=== PATIENT | female | born 1990 | race Caucasian/White ===

== ENCOUNTER 2016-06-07 23:16 | Emergency (ER) | payer OTHER, SELFPAY ==
[2016-06-07] MEDS ORDERED: NORCO 5/325 MG PO ONE (23:36)
[2016-06-07] MEDS ORDERED: NORCO 5/325 MG ONE (23:38)
--- NOTE | 2016-06-07 23:41 | ERPHSYRPT ---
- History of Present Illness Time Seen by Provider: 06/07/16 23:33 Source: patient Exam Limitations: no limitations Patient Subjective Stated Complaint: PT STS LT FINGER PAIN FOR A FEW DAYS INCREASING IN NATURE LT RING FINGER. DENIES SPECIFIC INJURY. PT RATES PAIN 10/ 10. PT STS TOOK IBUPROFEN BUT IT DID NOT REALLY HELP. Triage Nursing Assessment: PT ALERT, ORIENTED, ANSWERS ALL QUESTIONS APPROPRIATELY. SKIN P/W/D, RESPS NON-LABORED. PT AMBULATORY TO TX ROOM, STEADY GAIT NOTED. MILD SWELLING TO LT RING FINGER. NO REDNESS NOTED. LIMITED ROM NOTED. CAP REFILL LESS THAN 3 SECONDS. PT LAUGHING, SMILING, JOKING IN ROOM WITH SIGNIFICANT OTHER. Physician History: FOR THE PAST 3 DAYS PT HAS HAD LEFT RING FINGER PAIN WITHOUT ANY KNOWN INJURY. PT DENIES ANY PRIOR FRACTURES; DENIES NUMBNESS OF THE DIGITS OF THE LEFT HAND. Allergies/Adverse Reactions: No Known Drug Allergies Allergy (Verified 06/07/16 23:19) Home Medications: Ibuprofen 3 tab PO Q6-8HPRN PRN 06/07/16 [History] Hx Tetanus, Diphtheria Vaccination/Date Given: Yes Hx Influenza Vaccination/Date Given: No Hx Pneumococcal Vaccination/Date Given: No Immunizations Up to Date: Yes - Review of Systems Musculoskeletal: Other (LEFT RING FINGER PAIN) - Past Medical History Pertinent Past Medical History: No Neurological History: No Pertinent History ENT History: No Pertinent History Cardiac History: No Pertinent History Respiratory History: No Pertinent History Endocrine Medical History: No Pertinent History Musculoskeletal History: No Pertinent History GI Medical History: No Pertinent History History: No Pertinent History Psycho-Social History: Depression Female Reproductive Disorders: No Pertinent History - Past Surgical History Past Surgical History: Yes Neuro Surgical History: No Pertinent History Cardiac: No Pertinent History Respiratory: No Pertinent History Gastrointestinal: Appendectomy Genitourinary: No Pertinent History Musculoskeletal: No Pertinent History Female Surgical History: No Pertinent History Other Surgical History: "DIGESTIVE TRACT RE-ROUTED" - Social History Smoking Status: Current every day smoker How long have you smoked: 8 YEARS Exposure to second hand smoke: No Drug Use: none Patient Lives Alone: No - Female History Hx Last Menstrual Period: LAST WEEK Hx Now: No - Nursing Vital Signs Nursing Vital Signs: Initial Vital Signs Temperature 98.0 F Temperature Source Oral Pulse Rate 76 Respiratory Rate 16 Blood Pressure 106/64 Pain Intensity 10 - Physical Exam General Appearance: alert Shoulder Exam: normal ROM Elbow/Forearm Exam: normal ROM Wrist Exam: normal ROM Hand Exam: normal ROM, swelling (MILD TENDERNESS AND EDEMA OF THE LEFT RING FINGER; ALL LEFT HAND DIGITS HAVE FULL ROM, CAPILLARY REFILL AND SENSATION.) SpO2: 98 Oxygen Delivery: Room Air - Course Nursing assessment & vital signs reviewed: Yes - Radiology Exams Left Hand X-ray Interpretation: Interpreted by me, No Fracture Ordered Tests: Active Orders 24 hr Category Date Time Status HAND (MINIMUM 3 VIEWS) Stat Exams 06/07/16 23:36 Ordered Medication Summary Discontinued Medications Generic Name Dose Route Start Last Admin Trade Name Freq PRN Reason Stop Dose Admin Acetaminophen/Hydrocodone Bitart 2 tab 06/07/16 23:36 06/07/16 23:39 [place] 5/325 Mg PO 06/07/16 23:37 2 tab STAT ONE Administration Acetaminophen/Hydrocodone Bitart Confirm 06/07/16 23:38 [place] 5/325 Mg Administered 06/07/16 23:39 Dose 2 tab .ROUTE .STK-MED ONE - Departure Time of Disposition: 00:07 Departure Disposition: Home Clinical Impression: LEFT RING FINGER PAIN Condition: Fair Critical Care Time: No Referrals: ALF FLORES MD [ACTIVE STAFF] - Instructions: Finger Sprain Additional Instructions: FOLLOW UP WITH PRIVATE DOCTOR TOMORROW. ELEVATE LEFT HAND ABOVE HEART LEVEL FOR 24 HOURS. Prescriptions: Naproxen [Naprosyn] 500 mg PO [id number] PRN #20 tablet PRN Reason: Pain
[2016-06-08 00:16] VITALS: BP 108/66; PULSE 60; O2SAT 99
--- NOTE | 2016-06-08 08:52 | XRAY ---
Indication: Fourth finger PIP pain/swelling. No known injury. Comparison: None 3 views of the left hand demonstrates tiny nondisplaced avulsion like fracture involving the base of the fourth middle phalanx anteriorly with mild soft tissue swelling. No other bony, articular, or soft tissue abnormalities. Comment: Above fracture not reported. I gave telephone report to Dr. Chun in the ER at 0848 hours on June 08, 2016.
== END 2016-06-08 00:17 | disposition home or self-care (01) ==
LOC: ED 23:16
DX: S62.655A Nondisplaced fracture of middle phalanx of left ring finger, initial encounter for closed fracture (principal)
CPT/HCPCS: 73130; 99282

== ENCOUNTER 2016-09-01 22:52 | Emergency (ER) | payer OTHER, SELFPAY ==
[2016-09-01 23:06] VITALS: BP 122/76; PULSE 95; O2SAT 98
[2016-09-01] MEDS ORDERED: Sodium Chloride 0.9% 1000 ML 1,000 ML IV STA (23:29)
--- NOTE | 2016-09-01 23:36 | ERPHSYRPT ---
- History of Present Illness Time Seen by Provider: 09/01/16 23:00 Historian: patient Exam Limitations: clinical condition Patient Subjective Stated Complaint: chest pain since 4:30 Triage Nursing Assessment: pt alert and orietnedx3, pulses equal bilat radius, lung sounds clear, bowel sounds x4, patient has hx of anxiety is on medication currently for it Physician History: PATIENT WITH A HISTORY OF DEPRESSION COMPLAINS OF ACUTE ONSET OF RIGHT SIDED SHARP CHEST PAIN OVER THE PAST 4 HOURS EXACERBATED UPON INSPIRATION AND MOTION OF CHEST. DENIES COUGH, DYSPNEA, DIAPHORESIS OR PALPITATIONS. Activities at Onset: none Quality: sharpness, stabbing Location: other (RIGHT SIDED CHEST PAIN) Severity of Pain-Max: moderate Severity of Pain-Current: none Modifying Factors: Improves With: breathing, change in position Associated Symptoms: hurts to breathe Prior Chest Pain/Cardiac Workup: no prior chest pain Nitro Today/Relief: no nitro taken today Aspirin Treatment Today: no aspirin today Allergies/Adverse Reactions: No Known Drug Allergies Allergy (Verified 06/07/16 23:19) Home Medications: Ibuprofen 3 tab PO Q6-8HPRN PRN 06/07/16 [History] Hx Tetanus, Diphtheria Vaccination/Date Given: Yes Hx Influenza Vaccination/Date Given: No Hx Pneumococcal Vaccination/Date Given: No Immunizations Up to Date: Yes - Review of Systems Constitutional: No Fever, No Chills Eyes: No Symptoms Ears, Nose, & Throat: No Symptoms Respiratory: No Symptoms, No Cough, No Dyspnea Cardiac: Chest Pain, No Edema, No Syncope Abdominal/Gastrointestinal: No Abdominal Pain, No Nausea, No Vomiting, No Diarrhea Genitourinary Symptoms: No Symptoms, No Dysuria Musculoskeletal: No Symptoms, No Back Pain, No Neck Pain Skin: No Symptoms, No Rash Neurological: No Dizziness, No Focal Weakness, No Sensory Changes Psychological: No Symptoms Endocrine: No Symptoms All Other Systems: Reviewed and Negative - Past Medical History Pertinent Past Medical History: No Neurological History: No Pertinent History ENT History: No Pertinent History Cardiac History: No Pertinent History Respiratory History: No Pertinent History Endocrine Medical History: No Pertinent History Musculoskeletal History: No Pertinent History GI Medical History: No Pertinent History History: No Pertinent History Psycho-Social History: Depression Female Reproductive Disorders: No Pertinent History - Past Surgical History Past Surgical History: Yes Neuro Surgical History: No Pertinent History Cardiac: No Pertinent History Respiratory: No Pertinent History Gastrointestinal: Appendectomy Genitourinary: No Pertinent History Musculoskeletal: No Pertinent History Female Surgical History: No Pertinent History Other Surgical History: "DIGESTIVE TRACT RE-ROUTED" - Social History Smoking Status: Current every day smoker How long have you smoked: 8 YEARS Exposure to second hand smoke: No Drug Use: none Patient Lives Alone: No - Female History Hx Now: No - Nursing Vital Signs Temperature: 97.7 F Temperature Source: Oral Pulse Rate: 95 Respiratory Rate: 20 Pain Intensity: 3 - Physical Exam General Appearance: no apparent distress, alert Eye Exam: PERRL/EOMI, eyes nml inspection Ears, Nose, Throat Exam: normal ENT inspection, moist mucous membranes Neck Exam: normal inspection, non-tender, supple, full range of motion Respiratory Exam: normal breath sounds, chest tenderness, lungs clear, other ( MARKED PARASTERNAL CHEST TENDERNESS T-2 TO T-6), No respiratory distress Cardiovascular Exam: regular rate/rhythm, normal heart sounds, tachycardia Gastrointestinal/Abdomen Exam: soft, No tenderness, No mass Back Exam: normal inspection, No CVA tenderness, No vertebral tenderness Extremity Exam: normal inspection, normal range of motion Neurologic Exam: alert, oriented x 3, cooperative, normal mood/affect, sensation nml, No motor deficits Skin Exam: normal color, warm, dry SpO2 Interpretation: normal SpO2: 98 Oxygen Delivery: Room Air - Course EKG Interpreted by Me: RATE, Sinus Rhythm, Sinus Tach, Non-specific ST Changes Ordered Tests: Active Orders 24 hr Category Date Time Status Ged Instructor STAT Care 09/01/16 23:29 Active EKG-ER Only STAT Care 09/01/16 23:29 Active IV Insertion STAT Care 09/01/16 23:29 Active BMP Stat Lab 09/01/16 23:35 Completed CBC W DIFF Stat Lab 09/01/16 23:35 Completed D-DIMER QUANTITATION Stat Lab 09/01/16 23:35 Stop Req HCG,QUALITATIVE URINE Stat Lab 09/01/16 23:35 Completed TROPONIN Q3H Lab 09/01/16 23:40 Completed TROPONIN Q3H Lab 09/02/16 02:45 Ordered TROPONIN Q3H Lab 09/02/16 05:45 Ordered TROPONIN Q3H Lab 09/02/16 08:45 Ordered TROPONIN Q3H Lab 09/02/16 11:45 Ordered UA W/ MICROSCOPIC Stat Lab 09/01/16 23:35 Completed Urine Triage Profile Stat Lab 09/01/16 23:35 Completed Medication Summary Generic Name Dose Route Start Last Admin Trade Name Sara PRN Reason Stop Dose Admin Acetaminophen 650 mg 09/02/16 00:31 Tylenol 325 Mg PO 09/02/16 00:32 STAT STA Discontinued Medications Generic Name Dose Route Start Last Admin Trade Name Sara PRN Reason Stop Dose Admin Sodium Chloride 1,000 mls @ 999 mls/hr 09/01/16 23:29 09/01/16 23:40 Sodium Chloride 0.9% 1000 Ml IV 09/02/16 00:29 999 mls/hr .Q1H1M STA Administration Sodium Chloride Confirm 09/01/16 23:40 Sodium Chloride 0.9% 1000 Ml Administered 09/01/16 23:41 Dose 1,000 mls @ ud .ROUTE .STK-MED ONE Lab/Rad Data: Laboratory Result Diagrams 09/01/16 23:35 09/01/16 23:35 Laboratory Results 09/01/16 09/01/16 09/01/16 Range/Units 23:40 23:35 23:35 WBC (4.0-10.5) K/mm3 RBC (4.1-5.4) M/mm3 Hgb (12.0-16.0) gm/dl Hct (35-47) % MCV (78-100) fl MCH (26-32) pg MCHC (32-36) g/dl RDW (11.5-14.0) % Plt Count (150-450) K/mm3 MPV (6-9.5) fl Gran % (36.0-66.0) % Lymphocytes % (24.0-44.0) % Monocytes % (0.0-12.0) % Eosinophils % (0.00-5.0) % Basophils % (0.0-0.4) % Basophils # (0-0.4) Sodium (136-145) mEq/L Potassium (3.5-5.1) mEq/L Chloride (98-107) mEq/L Carbon Dioxide (21-32) mEq/L Anion Gap (5-15) MEQ/L BUN (9-20) mg/dL Creatinine (0.55-1.30) mg/dl Estimated GFR ML/MIN Glucose (70-110) MG/DL Calcium (8.5-10.1) mg/dL Troponin I < 0.017 (0.000-0.056) ng/ml Ur Collection Type Urine Color (YELLOW) Urine Appearance (CLEAR) Urine pH (5-6) Ur Specific [place] (1.005-1.025) Urine Protein (Negative) Urine Glucose (UA) (NEGATIVE) mg/dL Urine Ketones (NEGATIVE) Urine Nitrite (NEGATIVE) Urine Bilirubin (NEGATIVE) Urine Urobilinogen (0-1) mg/dL Urine WBC (Auto) (NEGATIVE) Urine RBC (Auto) (0-5) Kash/ul Urine Microscopic RBC (0-2) /HPF Urine Microscopic WBC (0-5) /HPF Ur Epithelial Cells (FEW) /HPF Urine Bacteria (NEGATIVE) /HPF Urine Mucus (NEGATIVE) /HPF Urine HCG, Qual POSITIVE (Negative) Urine Opiates Level NEG. (NEGATIVE) Ur Methadone NEG. (NEGATIVE) Urine Barbiturates NEG. (NEGATIVE) Ur Phencyclidine (PCP) NEG. (NEGATIVE) Urine Amphetamine NEG. (NEGATIVE) U Benzodiazepine Level NEG. (NEGATIVE) Urine Cocaine NEG. (NEGATIVE) Urine Marijuana (THC) NEG. (NEGATIVE) Specimen Received 09/01/16 09/01/16 09/01/16 Range/Units 23:35 23:35 23:35 WBC 9.6 (4.0-10.5) K/mm3 RBC 4.67 (4.1-5.4) M/mm3 Hgb 12.0 (12.0-16.0) gm/dl Hct 38.2 (35-47) % MCV 81.8 (78-100) fl MCH 25.7 L (26-32) pg MCHC 31.4 L (32-36) g/dl RDW 19.6 H (11.5-14.0) % Plt Count 199 (150-450) K/mm3 MPV 11.6 H (6-9.5) fl Gran % 56.4 (36.0-66.0) % Lymphocytes % 32.6 (24.0-44.0) % Monocytes % 9.2 (0.0-12.0) % Eosinophils % 1.6 (0.00-5.0) % Basophils % 0.2 (0.0-0.4) % Basophils # 0.02 (0-0.4) Sodium 139 (136-145) mEq/L Potassium 3.4 L (3.5-5.1) mEq/L Chloride 103 (98-107) mEq/L Carbon Dioxide 28.9 (21-32) mEq/L Anion Gap 10.1 (5-15) MEQ/L BUN 11 (9-20) mg/dL Creatinine 0.77 (0.55-1.30) mg/dl Estimated GFR > 60 ML/MIN Glucose 81 (70-110) MG/DL Calcium 8.9 (8.5-10.1) mg/dL Troponin I (0.000-0.056) ng/ml Ur Collection Type CLEAN CATCH Urine Color YELLOW (YELLOW) Urine Appearance SLIGHTLY CLOUDY (CLEAR) Urine pH 6.5 (5-6) Ur Specific [place] 1.025 (1.005-1.025) Urine Protein TRACE (Negative) Urine Glucose (UA) NEGATIVE (NEGATIVE) mg/dL Urine Ketones NEGATIVE (NEGATIVE) Urine Nitrite NEGATIVE (NEGATIVE) Urine Bilirubin NEGATIVE (NEGATIVE) Urine Urobilinogen 2 (0-1) mg/dL Urine WBC (Auto) TRACE (NEGATIVE) Urine RBC (Auto) NEGATIVE (0-5) Kash/ul Urine Microscopic RBC 10-15 (0-2) /HPF Urine Microscopic WBC 5-10 (0-5) /HPF Ur Epithelial Cells MANY (FEW) /HPF Urine Bacteria MODERATE (NEGATIVE) /HPF Urine Mucus MANY (NEGATIVE) /HPF Urine HCG, Qual (Negative) Urine Opiates Level (NEGATIVE) Ur Methadone (NEGATIVE) Urine Barbiturates (NEGATIVE) Ur Phencyclidine (PCP) (NEGATIVE) Urine Amphetamine (NEGATIVE) U Benzodiazepine Level (NEGATIVE) Urine Cocaine (NEGATIVE) Urine Marijuana (THC) (NEGATIVE) Specimen Received 09/01/16 2320 - Progress Counseled pt/family regarding: lab results, diagnosis, need for follow-up - Departure Time of Disposition: 00:30 Departure Disposition: Home Clinical Impression: ACUTE COSTCHONDRITIS, Condition: Stable Critical Care Time: No Referrals: NICOLE AMEZQUITA NP [Primary Care Provider] - Additional Instructions: GIVE TYLENOL EVERY 4 HOURS NEEDED FOR PAIN DISCOMFORT. CONSULT YOUR FAMILY PHYSICIAN FOR EVALUATION IN 1 WEEK.
[2016-09-01 23:39] LABS: BASOPHIL % 0.2 % (0.0-0.4); Eosinophil % 1.6 % (0.00-5.0); Granulocytes % 56.4 % (36.0-66.0); Lymphocytes % 32.6 % (24.0-44.0); Mean Cell Volume 81.8 fl (78-100); Mean Corpuscular Hemoglobin 25.7 pg (26-32); Mean Platelet Volume 11.6 fl (6-9.5); Monocytes % 9.2 % (0.0-12.0); Platelet Count 199 K/mm3 (150-450); Red Blood Count 4.67 M/mm3 (4.1-5.4); Red Cell Distribution Width 19.6 % (11.5-14.0); White Blood Count 9.6 K/mm3 (4.0-10.5)
[2016-09-01] MEDS ORDERED: Sodium Chloride 0.9% 1000 ML 1,000 ML ONE (23:40)
[2016-09-01 23:48] LABS: ANION GAP 10.1 MEQ/L (5-15); BLOOD UREA NITROGEN 11 mg/dL (9-20); CHLORIDE 103 mEq/L (98-107); Carbon Dioxide 28.9 mEq/L (21-32); Glucose 81 MG/DL (70-110); Potassium 3.4 mEq/L (3.5-5.1); SODIUM 139 mEq/L (136-145)
[2016-09-01 23:58] LABS: Collection Type CLEAN CATCH
[2016-09-01 23:59] LABS: Bacteria MODERATE /HPF (NEGATIVE); COMPLETE URINE MICROSCOPIC? YES; Epithelial Cells MANY /HPF (FEW); Mucus MANY /HPF (NEGATIVE); Ph 6.5 (5-6)
[2016-09-02] MEDS ORDERED: TYLENOL 325 MG PO STA (00:31)
[2016-09-02] MEDS ORDERED: ROCEPHIN 1 Gm-D5w 50 ml Bag** 50 ML IV ONE ×2 (00:44→01:09)
[2016-09-02] MEDS ORDERED: TYLENOL 325 MG ONE (01:09)
== END 2016-09-02 02:07 | disposition home or self-care (01) ==
LOC: ED 22:52
DX: M94.0 Chondrocostal junction syndrome [Tietze] (principal); Z33.1 Pregnant state, incidental
CPT/HCPCS: 36000; 36415; 80048; 80307; 81000; 84484; 84703; 85025; 85379; 93005; 93041; 96360; 96365; 99284; 99285; J0696; A9270-GY

== ENCOUNTER 2017-04-14 13:33 | Observation (INO) | payer OTHER, SELFPAY ==
[2017-04-14 14:12] LABS: Bilirubin SMALL (NEGATIVE); COMPLETE URINE MICROSCOPIC? YES; Collection Type VOID; Glucose NEGATIVE (NEGATIVE); Leukocyte Esterase 2+ (NEGATIVE); WBC 25-50 /HPF (0-5)
[2017-04-14 14:13] LABS: Bacteria MANY /HPF (NEGATIVE); Epithelial Cells MANY /HPF (FEW)
[2017-04-14] MEDS ORDERED: Rocephin 1000 MG INJ IM ONE (16:22)
[2017-04-14 18:08] VITALS: BP 122/60; PULSE 88
== END 2017-04-14 17:25 | disposition home or self-care (01) ==
LOC: OB 13:33
PROVIDERS: ADMIT Family Medicine; ATTEND Family Medicine
DX: Z34.83 Encounter for supervision of other normal pregnancy, third trimester (principal)
CPT/HCPCS: 80307; 81000; 87077; 87081; 87086; 87186; G0378; J0696

== ENCOUNTER 2017-04-17 03:07 | Observation (INO) | payer OTHER ==
[2017-04-17 03:45] VITALS: PULSE 93
[2017-04-17 03:54] VITALS: BP 108/59
[2017-04-17 04:15] LABS: Bacteria RARE /HPF (NEGATIVE); Bilirubin NEGATIVE (NEGATIVE); Blood NEGATIVE Ery/ul (0-5); COMPLETE URINE MICROSCOPIC? YES; Collection Type CLEAN CATCH; Epithelial Cells FEW /HPF (FEW); Glucose NEGATIVE (NEGATIVE); Leukocyte Esterase 1+ (NEGATIVE); WBC 0-2 /HPF (0-5)
== END 2017-04-17 04:45 | disposition home or self-care (01) ==
LOC: OB 03:07
PROVIDERS: ADMIT Family Medicine; ATTEND Family Medicine
DX: Z34.83 Encounter for supervision of other normal pregnancy, third trimester (principal)
CPT/HCPCS: 80307; 81000; G0378

== ENCOUNTER 2017-04-17 21:01 | Inpatient (IN) | payer OTHER ==
[2017-04-17] MEDS ORDERED: XYLOCAINE 1% HCL 20 ML MDV IJ PRN (22:57)
[2017-04-17] MEDS ORDERED: Lactated Ringers 1,000 ML IV SCH (23:00)
[2017-04-17] MEDS ORDERED: PITOCIN 30 UNITS/ LR 500 ML 500 ML IV SCH (23:00)
[2017-04-17] MEDS ORDERED: PITOCIN 30 UNITS/ LR 500 ML 500 ML IV ONE (23:08)
[2017-04-17] MEDS ORDERED: Lactated Ringers 2,000 ML IV ONE (23:08)
[2017-04-17 23:14] LABS: BASOPHIL % 0.2 % (0.0-0.4); Eosinophil % 0.6 % (0.00-5.0); Granulocytes % 80.4 % (36.0-66.0); Lymphocytes % 11.6 % (24.0-44.0); Mean Corpuscular Hemoglobin 26.3 pg (26-32); Mean Platelet Volume 12.3 fl (6-9.5); Monocytes % 7.2 % (0.0-12.0); Platelet Count 179 K/mm3 (150-450); Red Blood Count 3.99 M/mm3 (4.1-5.4); Red Cell Distribution Width 13.6 % (11.5-14.0); White Blood Count 18.6 K/mm3 (4.0-10.5)
[2017-04-17] MEDS ORDERED: Lactated Ringers 1,000 ML IV ONE (23:46)
[2017-04-17] MEDS ORDERED: Ephedrine Sulfate 50 MG/ML IV PRN (23:46)
[2017-04-17] MEDS ORDERED: OB EPIDURAL NAROPIN/SUFENTANIL IN NACL EPIDURAL PRN (23:46)
[2017-04-18 01:15] VITALS: O2SAT 99
[2017-04-18] MEDS ORDERED: CORTISONE 1% CREAM TP PRN (05:14)
[2017-04-18] MEDS ORDERED: TYLENOL EXTRA STRENGTH 500 MG PO PRN (05:14)
[2017-04-18] MEDS ORDERED: Anucort-HC SUPPOSITORY PR PRN (05:14)
[2017-04-18] MEDS ORDERED: Dermoplast Spray TP PRN (05:14)
[2017-04-18] MEDS ORDERED: Mylicon 80MG PO PRN (05:14)
[2017-04-18] MEDS ORDERED: Dulcolax 10 MG SUPP PR PRN (05:14)
[2017-04-18] MEDS: MOTRIN 400 MG PO PRN ×2 (05:21→22:07)
[2017-04-18] MEDS ORDERED: TUCKS TP PRN (08:04)
[2017-04-18] MEDS: Colace 100 MG PO SCH ×2 (10:38→22:04)
[2017-04-18] MEDS: FERREX 150 PO SCH (10:38)
[2017-04-18] MEDS: NORCO 5/325 MG PO PRN ×3 (10:38→19:38)
[2017-04-18] MEDS: KEFLEX 500 MG PO SCH ×3 (13:40→22:04)
[2017-04-19 06:26] LABS: Mean Cell Volume 84.6 fl (78-100); Mean Corpuscular Hemoglobin 25.8 pg (26-32); Mean Platelet Volume 12.2 fl (6-9.5); Platelet Count 135 K/mm3 (150-450); Red Blood Count 2.98 M/mm3 (4.1-5.4); Red Cell Distribution Width 13.5 % (11.5-14.0)
[2017-04-19 07:13] LABS: BAND 1 % (0.0-2.0); Eosinophil 1 % (0.00-3.0); Total Cells Counted 100
[2017-04-19 07:14] LABS: Platelet Estimate NORMAL (NORMAL)
[2017-04-19] MEDS: NORCO 5/325 MG PO PRN ×2 (09:10→19:54)
[2017-04-19] MEDS: Colace 100 MG PO SCH ×2 (09:11→21:32)
[2017-04-19] MEDS: KEFLEX 500 MG PO SCH ×4 (09:11→21:32)
[2017-04-19] MEDS: FERREX 150 PO SCH (09:11)
[2017-04-19] MEDS: MOTRIN 400 MG PO PRN ×2 (10:47→18:29)
[2017-04-20] MEDS: NORCO 5/325 MG PO PRN ×2 (01:25→09:37)
[2017-04-20] MEDS: MOTRIN 400 MG PO PRN ×2 (01:44→13:26)
--- NOTE | 2017-04-20 07:02 | PCM.DS ---
Discharge Summary Date of Admission: 04/17/17 21:01 Admitting Physician: [facility] FLORES Consults: Consults on Case 04/17/17 23:46 Notify Anesthesia Provider PRN Primary Care Provider: [facility]F FLORES Allergies Allergies No Known Drug Allergies Allergy (Verified 04/17/17 21:13) Hospital Summary - Hospital Course Hospital Course: patient had term , no complications. c/o strain in upper abdomen/mid back from climbing in bed. sore to move, no dyspnea, no chest pain. - Vitals & Intake/Output Vital Signs: Vital Signs Temperature 97.2 F 04/19/17 20:02 Pulse Rate 91 H 04/20/17 01:54 Respiratory Rate 18 04/20/17 01:54 Blood Pressure 111/59 04/20/17 01:54 O2 Sat by Pulse Oximetry 99 04/18/17 01:00 Intake & Output: Intake & Output 04/17/17 04/18/17 04/19/17 04/20/17 11:59 11:59 11:59 11:59 Intake Total 800 Output Total 0 Balance 0 800 Weight 74.389 kg - Lab Result Diagrams: 04/19/17 05:05 Lab Results-Last 24 Hrs: Lab Results-Last 24 Hours 04/19/17 Range/Units 05:05 Segmented Neutrophils 74 H (36.0-66.0) % Band Neutrophils 1 (0.0-2.0) % Lymphocytes (Manual) 19 L (24-44) % Monocytes (Manual) 5 (0.0-12.0) % Eosinophils (Manual) 1 (0.00-3.0) % Differential Comment NORMAL Platelet Estimate NORMAL (NORMAL) - Procedures and Test Procedures and Tests throughout Hospitalization: Therapy Orders & Screens 04/17/17 22:15 Smoking Cessation Education ONCE Comment: Diagnosis: OB CHECK Smoking Status: Current every day smoker How long have you smoked: 8 YEARS Have you smoked in the past 12 months: Yes Approximately how many cigarettes per day: 5 Do you dip or chew tobacco: No If,Former Smoker,when did you quit: 7 months ago Discharge Exam General Appearance: no apparent distress, alert Skin Exam: normal color, warm, dry Respiratory Exam: normal breath sounds, lungs clear, No respiratory distress Cardiovascular Exam: regular rate/rhythm, normal heart sounds Gastrointestinal/Abdomen Exam: soft, No tenderness, No mass Extremity Exam: normal inspection, normal range of motion Final Diagnosis/Problem List - Final Discharge Diagnosis/Problem (1) Vaginal delivery Current Visit: No Status: Acute (2) Second degree perineal laceration Current Visit: No Status: Acute - Discharge Disposition: Home, Self-Care Condition: Stable Prescriptions: [place] Polysaccharides Complex [Ferrex 150] 150 mg PO DAILY #30 capsule Hydrocodone Bit/Acetaminophen [[place] 5-325 Tablet] 1 each PO Q4-6HPRN PRN # 20 tablet PRN Reason: Pain Continue Cephalexin [Keflex] 500 mg PO QID Follow up with: [facility]F FLORES MD [Primary Care Provider] - 1 Week
[2017-04-20] MEDS: Colace 100 MG PO SCH (09:37)
[2017-04-20] MEDS: FERREX 150 PO SCH (09:37)
[2017-04-20] MEDS: KEFLEX 500 MG PO SCH ×3 (09:37→16:56)
[2017-04-20 18:55] VITALS: BP 96/56; PULSE 64
== END 2017-04-20 18:50 | disposition home or self-care (01) | DRG 775 ==
LOC: EEVIPCON 21:01 → OB 21:01 → OBSVTOIN 21:01
PROVIDERS: ADMIT Family Medicine; ATTEND Family Medicine
PROC: 10E0XZZ Delivery of Products of Conception, External Approach (ICD-10-PCS; principal; 2017-04-18)
PROC: 0KQM0ZZ Repair Perineum Muscle, Open Approach (ICD-10-PCS; 2017-04-18)
DX: O70.1 Second degree perineal laceration during delivery (principal); Z37.0 Single live birth; Z3A.39 39 weeks gestation of pregnancy; D64.9 Anemia, unspecified
CPT/HCPCS: 01967; 36415; 80307; 85025; G0378; J2590; J2795; A9270-GY

== ENCOUNTER 2019-05-10 19:12 | Observation (INO) | payer MEDICAID, OTHER, SELFPAY ==
[2019-05-10 19:44] LABS: Appearance CLOUDY (CLEAR); Bilirubin NEGATIVE (NEGATIVE); Blood NEGATIVE Ery/ul (0-5); Budding Yeast Few /HPF (NEGATIVE); Crystals Unidentified 25-50 /HPF (NEGATIVE); Epithelial Cells MODERATE /HPF (FEW); Glucose NEGATIVE (NEGATIVE); Ketones NEGATIVE (NEGATIVE); Leukocyte Esterase SMALL (NEGATIVE); Mucus SLIGHT /HPF (NEGATIVE); Nitrite POSITIVE (NEGATIVE); Protein,Urine Dip 30 (Negative); Specific Gravity 1.023 (1.005-1.025); Urobilinogen 4 mg/dL (0-1); WBC 26-50 /HPF (0-5)
[2019-05-10 20:48] LABS: Hematocrit 26.6 % (35-47); Hemoglobin 8.3 gm/dl (12.0-16.0); Mean Cell Volume 79.4 fl (78-100); Mean Corpuscular Hemoglobin 24.8 pg (26-32); Mean Corpuscular Hgb Concent. 31.2 g/dl (32-36); Mean Platelet Volume 11.3 fl (6-9.5); Platelet Count 181 K/mm3 (150-450); Red Blood Count 3.35 M/mm3 (4.1-5.4); Red Cell Distribution Width 13.2 % (11.5-14.0); White Blood Count 14.3 K/mm3 (4.0-10.5)
[2019-05-10 21:18] LABS: Amphetamine,Urine NEGATIVE (NEGATIVE); Barbiturate,Urine NEGATIVE (NEGATIVE); Benzodiazepine,Urine NEGATIVE (NEGATIVE); Cocaine,Urine NEGATIVE (NEGATIVE); Methadone,Urine NEGATIVE (NEGATIVE); Opiate,Urine NEGATIVE (NEGATIVE); PCP,Urine NEGATIVE (NEGATIVE); THC,Urine NEGATIVE (NEGATIVE)
[2019-05-10] MEDS ORDERED: ROCEPHIN 1 Gm-D5w 50 ml Bag** 1 G/50 ML IVPB IV ONE (21:36)
[2019-05-10] MEDS: Lactated Ringers 1,000 ML IV SCH (21:43)
[2019-05-10] MEDS ORDERED: ROCEPHIN 1 Gm-D5w 50 ml Bag** 1 G/50 ML IVPB IV SCH (22:00)
[2019-05-10] MEDS ORDERED: KEFLEX 500 MG PO SCH (22:00)
[2019-05-10 22:38] LABS: ABO TYPING O; Antibody Screen NEGATIVE (NEGATIVE); RH TYPING POSITIVE
[2019-05-10 23:45] LABS: Basophil 1 % (0.0-1.0); Eosinophil 1 % (0.00-3.0); Lymphocytes 11 % (24-44); Monocyte 2 % (0.0-12.0); Neutrophils 67 % (36.0-66.0); Promyelocyte 18 %; Total Cells Counted 100
[2019-05-10 23:46] LABS: ANISOCYTOSIS 2+; Hypochromia 3+; Platelet Estimate NORMAL (NORMAL); Poikilocytosis 2+; Toxic Granulation 2+
[2019-05-11] MEDS: Lactated Ringers 1,000 ML IV SCH (05:41)
[2019-05-11 10:48] VITALS: BP 96/58; PULSE 95
--- NOTE | 2019-05-11 20:22 | XRAY ---
Indication: Abdomen pain. Two-dimensional OB ultrasound performed. Comparison: None for this . There is a single viable intrauterine currently in cephalic presentation. Normal four-chamber heart with heart rate 125 BPM. Normal three-vessel cord and cord insertion. Visualized spine, stomach, kidneys, bladder unremarkable. Anterior placenta without abruption/previa. Cervical length is 4.7 cm. BPD measures 6.81 cm corresponding to 27 weeks 3 days. HC measures 26.21 cm corresponding to 28 weeks 4 days. AC measures 24.23 cm corresponding to 28 weeks 3 days. FL measures 5.39 cm corresponding to 28 weeks 4 days. TYRON is 5.6 cm. Incidental maternal gallbladder stones. Impression: Single viable in intrauterine with mean gestational age 28 weeks 2 days. Expected date confinement is August 01, 2019. Oligohydramnios. Incidental maternal gallstones. Comment: Preliminary report was given.
--- NOTE | 2019-05-11 20:23 | XRAY ---
Indication: Abdominal pain. Two-dimensional renal sonogram performed. Comparison: None Both kidneys normal in reniform shape with normal color perfusion. Right kidney measures 13.3 x 6.4 x 6.2 cm and the left measures 12.7 x 5.3 x 5.3 cm. No focal solid/cystic renal mass or hydronephrosis. Cortical medullary differentiation preserved. Images of the urinary bladder demonstrates debris in the dependent portion. Normal bilateral ureteral jets. Impression: Urinary bladder debris. Remaining renal sonogram is negative.
[2019-05-11] MEDS ORDERED: ROCEPHIN 1 Gm-D5w 50 ml Bag** 1 G/50 ML IVPB IV SCH ×2 (22:00)
[2019-05-13 03:04] LABS: HIV Antigen/Antibody Combo Non Reactive (Non Reactive); Hepatitis B Sur Ag Screen Non Reactive (Non Reactive); Hepatitis C Antibody by EIA Non Reactive (Non Reactive)
[2019-05-13 10:58] LABS: Immune Status: Immune
[2019-05-13 12:37] LABS: RPR Screen Non Reactive (Non Reactive)
== END 2019-05-11 13:11 | disposition home or self-care (01) ==
LOC: OB 19:12
PROVIDERS: ADMIT Obstetrics & Gynecology; ATTEND Obstetrics & Gynecology
DX: O23.03 Infections of kidney in pregnancy, third trimester (principal); O99.013 Anemia complicating pregnancy, third trimester; Z3A.28 28 weeks gestation of pregnancy
CPT/HCPCS: 36415; 76770; 76805; 80055; 80307; 81001; 87077; 87086; 87186; G0378; J0696